=== PATIENT | female | born 1990 | race Caucasian/White ===

== ENCOUNTER 2017-04-16 20:23 | Emergency (ER) | payer BC ==
[~2017-04-16] VITALS: Ht 162.6 cm; Wt 68.0 kg
[~2017-04-16 20:23] MED LIST: BIRTH CONTROL PILL PO
--- NOTE | 2017-04-16 21:15 | Diagnostic Imaging Report ---
INDICATION: Injury to right foot. EXAMINATION: AP, oblique and lateral views of the right foot were obtained. FINDINGS: No fracture or acute bony abnormality is seen. Joint spaces are unremarkable. IMPRESSION: Negative right foot. Dictated by: Dictated on workstation # [id number]
[2017-04-16] MEDS ORDERED: TRAM-42 PO (21:32)
--- NOTE | 2017-04-16 21:33 | ED Lower Extremity ---
General Chief Complaint: Lower Extremity Stated Complaint: R FOOT INJ Nursing Triage Note: PT TO ED 10 W/ C/O RT FOOT PAIN ONSET AFTER ROLLING ANKLE ON A HILL. DENIES C/ O ANKLE PAIN. ALSO NOTED ARE ABRASIONS TO LT KNEE ET ANKLE. NO OTHER C/O VOICED Nursing Sepsis Screen: No Definite Risk Source: patient Exam Limitations: no limitations History of Present Illness Time seen by provider: 20:48 Initial Comments This patient presents to the emergency room with pain to the dorsum and lateral aspect of her right foot after rolling her ankle and falling down a caden hill. She has abrasions on the left knee and leg but she is not having significant pain there. She has been ambulatory but there is pain with walking. Dorsiflexion of the toes causes pain as does walking. She applied ice at home and took Excedrin and has had some mild improvement. Allergies and Home Medications Allergies Coded Allergies: No Known Drug Allergies (Unverified , 04/09/12) Home Medications Tramadol HCl 50 Mg Tablet, 50 MG PO Q6H PRN for PAIN-MODERATE TO SEVERE, #14 Prescribed by: MARIS PRESLEY on 04/16/172131 [ Control Pill] , 1 TAB PO DAILY, (Reported) Constitutional: no symptoms reported EENTM: no symptoms reported Respiratory: no symptoms reported Cardiovascular: no symptoms reported Gastrointestinal: no symptoms reported Genitourinary: no symptoms reported : No Expected Date of Delivery: Apr 15, 2017 Musculoskeletal: see HPI Skin: see HPI Psychiatric/Neurological: No Symptoms Reported Past Tryatsl-Cayprh-Htqhvm Hx Patient Social History Alcohol Use: Denies Use Recreational Drug Use: No Smoking Status: Never a Smoker Recent Foreign Travel: No Contact w/Someone Who Travel: No Recent Infectious Disease Expo: No Recent Hopitalizations: No Surgeries HX Surgeries: Yes Surgeries: Adenoidectomy, Orthopedic (meniscus tear), Tonsillectomy Respiratory Hx Respiratory Disorders: No Cardiovascular Hx Cardiac Disorders: No Neurological Hx Neurological Disorders: No Reproductive System Hx Reproductive Disorders: Yes (CHRONIC PELVIC PAIN) Sexually Transmitted Disease: No Gastrointestinal Hx Gastrointestinal Disorders: No Musculoskeletal Hx Musculoskeletal Disorders: No Endocrine Hx Endocrine Disorders: No HEENT HX ENT Disorders: No Cancer Hx Cancer: No Psychosocial Hx Psychiatric Problems: No Blood Transfusions Hx Blood Disorders: No Physical Exam Vital Signs Vital Sign - Last 12Hours 04/16/17 20:40 Temp 96.3 Pulse 86 Resp 20 B/P (MAP) 126/91 Pulse Ox 99 O2 Delivery Room Air Capillary Refill : Less Than 3 Seconds General Appearance: WD/WN, no apparent distress HEENT: normal ENT inspection Legs: right leg non-tender, right leg normal inspection, bilateral leg normal range of motion, right leg no evidence of injury, left leg other (abrasion of the left knee and leg) Knees: bilateral knee non-tender, bilateral knee normal inspection, bilateral knee normal range of motion, bilateral knee no evidence of injury Ankles: bilateral ankle non-tender, bilateral ankle normal inspection, bilateral ankle normal range of motion, bilateral ankle no evidence of injury Feet: bilateral foot non-tender, bilateral foot normal inspection, bilateral foot normal range of motion, bilateral foot no evidence of injury, right foot bone tenderness, right foot limited range of motion, right foot pain, right foot swelling, right foot other (pain and tenderness to the dorsum and lateral aspect of the right foot. Pain with dorsiflexion range of motion. 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 Tramadol was given as an alternative. Diagnostic Imaging Diagonstic Imaging: Xray Plain Films/CT/US/NM/MRI: other (right foot) Comments X-ray of the right foot viewed by me and report reviewed. See report below: NAME: EVETTE HARRELL [facility] REC#: [id number] PT STATUS: REG ER : 1990 PHYSICIAN: MARIS ECHEVERRIA MD ADMIT DATE: 04/16/17/ER Signed Date of Exam: 04/16/17 FOOT, RIGHT, 3 VIEW INDICATION: Injury to right foot. EXAMINATION: AP, oblique and lateral views of the right foot were obtained. FINDINGS: No fracture or acute bony abnormality is seen. Joint spaces are unremarkable. IMPRESSION: Negative right foot. Dictated by: Dictated on workstation # [id number] Dict: 04/16/172110 Trans: 04/16/172118 Interpreted by: JOHN COY MD Electronically signed by: JOHN COY MD 04/16/172118 Departure Impression Impression: Primary Impression: Right foot sprain Qualified Codes: S93.601A - Unspecified sprain of right foot, initial encounter Disposition: HOME, SELF-CARE Condition: Stable Departure-Patient Inst. Decision time for Depature: 21:25 Referrals: NO,LOCAL PHYSICIAN (PCP) Primary Care Physician SHERLY RUSSO MD (Family) Primary Care Physician Patient Instructions: NO INSTRUCTIONS GIVEN Add. Discharge Instructions: You may take ibuprofen up to 600 mg every 6 hours as needed for pain. Add Tylenol (acetaminophen) or Ultram (tramadol) 4 pain not controlled by ibuprofen. Avoid strenuous activity such as running or prolonged periods of time on your feet as long as pain persists. Where supportive shoes with good condition. Follow-up with your primary care provider if not improving over the next week. Return to care if symptoms worsen. All discharge instructions reviewed with patient and/or family. Voiced understanding. Scripts Tramadol HCl (Ultram) 50 Mg Tablet 50 MG PO Q6H Y for PAIN-MODERATE TO SEVERE, #14 TAB Prov: MARIS ECHEVERRIA MD 04/16/17 MARIS ECHEVERRIA MD Apr 16, 2017 21:33
[2017-04-16 21:37] VITALS: BP 126/91
== END 2017-04-16 21:37 | disposition home or self-care (01) ==
LOC: EDUNIT# 20:23 → ER 20:27
DX: S93.601A Unspecified sprain of right foot, initial encounter (principal); Z90.89 Acquired absence of other organs; X50.0XXA Overexertion from strenuous movement or load, initial encounter; Y92.828 Other wilderness area as the place of occurrence of the external cause
CPT/HCPCS: 73630; 99283

== ENCOUNTER 2018-10-19 05:29 | Outpatient (CLI) | payer BC ==
[~2018-10-19] VITALS: Ht 165.1 cm; Wt 74.8 kg
[~2018-10-19 05:29] MED LIST changes: +TRAM-42 PO
== END 2018-10-19 11:11 | disposition home or self-care (01) ==
LOC: PREOP 05:29
PROVIDERS: ATTEND Obstetrics & Gynecology
DX: Z01.818 Encounter for other preprocedural examination (principal)

== ENCOUNTER 2018-10-25 07:07 | Day surgery (SDC) | payer BC, OTHER ==
[~2018-10-25] VITALS: Ht 165.1 cm; Wt 74.8 kg
--- NOTE | 2018-10-25 07:27 | Progress Note-Pre Operative ---
Pre-Operative Progress Note H&P Reviewed The H&P was reviewed, patient examined and no changes noted. Date Seen by Provider: Oct 25, 2018 Time Seen by Provider: 08:00 Date H&P Reviewed: Oct 25, 2018 Time H&P Reviewed: 08:00 Pre-Operative Diagnosis: ANTHONY FONTENOT DO Oct 25, 2018 07:27
[2018-10-25] MEDS: LACTATED RINGERS 1,000 ML IV PRN ×2 (07:35→09:56)
[2018-10-25] MEDS ORDERED: BUPIVACAINE 0.25% 30 ML (SENSORCAINE) VIAL ONE (07:41)
[2018-10-25 07:49] VITALS: BP 111/81
[2018-10-25 07:50] LABS: BASOPHILS % (AUTO) 1 % (0-10); EOSINOPHILS # (AUTO) 0.1 10^3/uL (0.0-0.3); EOSINOPHILS % (AUTO) 2 % (0-10); HEMATOCRIT 37 % (35-52); HEMOGLOBIN 13.2 G/DL (11.5-16.0); LYMPHOCYTES # (AUTO) 1.5 X 10^3 (1.0-4.0); LYMPHOCYTES % (AUTO) 43 % (12-44); MEAN CORPUSCULAR HEMOGLOBIN 31 PG (25-34); MEAN CORPUSCULAR HGB CONC 36 G/DL (32-36); MEAN CORPUSCULAR VOLUME 89 FL (80-99); MEAN PLATELET VOLUME 8.8 FL (7.4-10.4); MONOCYTES # (AUTO) 0.4 X 10^3 (0.0-1.0); MONOCYTES % (AUTO) 11 % (0-12); NEUTROPHILS # (AUTO) 1.5 X 10^3 (1.8-7.8); NEUTROPHILS % (AUTO) 43 % (42-75); PLATELET COUNT 257 10^3/uL (130-400); RED CELL DISTRIBUTION WIDTH 12.4 % (10.0-14.5); WHITE BLOOD COUNT 3.5 10^3/uL (4.3-11.0)
[2018-10-25] MEDS ORDERED: ONDANSETRON 4 MG/2 ML (SDV) Z0FRAN ONE (08:06)
[2018-10-25] MEDS ORDERED: LIDOCAINE PF 2% 5 ML (XYLOCAINE) VIAL ONE (08:06)
[2018-10-25] MEDS ORDERED: ROCURONIUM 10 MG/ML 5 ML SYRINGE IV ONE (08:06)
[2018-10-25] MEDS ORDERED: proPOfol 200 MG/20 ML (DIPRIVAN) VIAL IV ONE (08:06)
[2018-10-25] MEDS ORDERED: MIDAZOLAM 2 MG/2 ML (VERSED) VIAL ONE (08:06)
[2018-10-25] MEDS ORDERED: fentaNYL INJECTION 100 MCG/2 ML AMP ONE (08:06)
[2018-10-25] MEDS ORDERED: SEVOFLURANE (ULTANE) 15 ML INHAL SOLN ONE ×5 (08:09→09:47)
[2018-10-25] MEDS ORDERED: D5 LR IV SOLUTION 1,000 ML IV SCH (08:34)
[2018-10-25] MEDS ORDERED: KETOROLAC 30 MG/ML VIAL IVP ONE (08:45)
[2018-10-25] MEDS ORDERED: ONDANSETRON 4 MG/2 ML (SDV) Z0FRAN IVP PRN ×2 (08:45→10:00)
[2018-10-25] MEDS ORDERED: IBUP-1773 PO (08:54)
[2018-10-25] MEDS ORDERED: HYDR-4226 PO (08:54)
--- NOTE | 2018-10-25 08:56 | Discharge Inst-Women's Service ---
Discharge Inst-Women's Serv Depart Medication/Instructions New, Converted or Re-Newed RX: RX on Chart Consults/Follow Up Additional Follow Up: Yes Orders/Referrals DR Villalobos in 7-10 days Activity Activity: Activity as Tolerated Driving Instructions: You May Drive (do not drive while taking hydrocodone) NO SMOKING: NO SMOKING Nothing Inside Vagina: No Douching, No [place], No Tampons Diet Discharge Diet: No Restrictions Symptoms to Report to : Bleeding Excessive, Pain Increased, Fever Over 101 Degrees F, Vaginal Bleeding Increase, Questions/Concerns ANTHONY VILLALOBOS DO Oct 25, 2018 08:55
[2018-10-25] MEDS ORDERED: GLYCOPYRROLATE 0.2 MG/ML (ROBINUL) 2 ML VIAL ONE (09:38)
[2018-10-25] MEDS ORDERED: NEOSTIGMINE 1 MG/ML 5 ML SYRINGE ONE (09:38)
[2018-10-25] MEDS ORDERED: KETOROLAC 30 MG/ML VIAL ONE (09:42)
[2018-10-25] MEDS ORDERED: PROMETHAZINE INJ 25 MG/ML (PHENERGAN) AMP IVP ONE (10:00)
[2018-10-25] MEDS ORDERED: MEPERIDINE (DEMEROL) INJ 50 MG/ML IVP ONE (10:00)
[2018-10-25] MEDS ORDERED: HYDROmorphone 2 MG/ML VIAL (DILAUDID) IV ONE (10:00)
[2018-10-25] MEDS ORDERED: morphine INJ 10 MG/ML 1ML (SYR OR VIAL) IVP ONE (10:00)
[2018-10-25 10:55] VITALS: BP 93/67
--- NOTE | 2018-10-25 11:10 | Anesthesia-General Post-Op ---
General Patient Condition Mental Status/LOC: Same as Preop Cardiovascular: Satisfactory Nausea/Vomiting: Absent Respiratory: Satisfactory Pain: Controlled Complications: Absent Post Op Complications Complications None Follow Up Care/Instructions Patient Instructions None needed. Anesthesia/Patient Condition Patient Condition Patient is doing well, no complaints, stable vital signs, no apparent adverse anesthesia problems. No complications reported per nursing. JASMINE LYN CRNA Oct 25, 2018 11:10
[2018-10-25] MEDS ORDERED: HYDROcodone/APAP 5 MG/325 MG (LORTAB) TAB PO ONE (11:15)
[2018-10-25 11:25] VITALS: BP 98/70
[2018-10-25 11:55] VITALS: BP 91/63
[2018-10-25 12:35] VITALS: BP 91/63
--- NOTE | 2018-10-25 15:08 | OPERATIVE REPORT ---
DATE OF SERVICE: PREOPERATIVE DIAGNOSES: 1. A 28-year-old female with chronic pelvic pain. 2. Pain with defecation. 3. Suspected underlying endometriosis. POSTOPERATIVE DIAGNOSES: 1. A 28-year-old female with chronic pelvic pain. 2. Pain with defecation. 3. Suspected underlying endometriosis. 4. Adhesions from the sigmoid colon to the left adnexa. 5. Confirmed endometriosis. PROCEDURE: Laparoscopic lysis of adhesions with cauterization and ablation of endometriosis implants of the peritoneum. SURGEON: Te Feng DO. PLANT TECH: ANTWAN Gomez. ANESTHESIA: General endotracheal. ESTIMATED BLOOD LOSS: Minimal. URINE OUTPUT: 200 mL clear at the end of the procedure. FLUIDS: 900 mL of lactated Ringer solution. FINDINGS: There was a grossly normal appearing uterus, bilateral fallopian tubes and ovaries with adhesions of the descending sigmoid colon wrapping from the epiploica of the sigmoid colon around anterior of the left round ligament impinging the left adnexa, endometriosis implants of the uterosacral ligaments bilaterally as well as some suspected colonic endometriosis implants, endometriosis implant of the uterine fundus. SPECIMENS SENT: None. INDICATIONS: This is a 28-year-old female patient that has been under my care for the past two to three years with significant complaints of chronic pelvic pain. She has had pain her entire life associated with gynecologic region. She could not even insert a tampon due to the amount of discomfort that she is having. We have tried conservative measures in the past including oral contraceptive pills and Depo-Provera, all of which have not resulted in any type of improvement in her symptoms and they have progressively have become worse. She is now complaining of a significant amount of pain with bowel movements and is wanting to proceed with more definitive and hopefully diagnostic measures. Risks of the procedure were discussed with the patient in detail in the preoperative area and after all of her questions were answered, consent was obtained in the preoperative area. The patient was taken to the operating room. DESCRIPTION OF PROCEDURE IN DETAIL: Once in the operating room, general anesthesia was found to be adequate. She was placed in the dorsal lithotomy position and prepped and draped in the normal sterile fashion. Husain catheter was placed using the sterile technique. A timeout was performed. A weighted speculum was inserted into the patient's vagina. A right angle retractor was used to visualize the cervix, which was grasped at 12 o'clock position using a long Allis clamp. I then gently sounded the uterine cavity and that sounded to be 8 cm. I then placed a ZapMeer uterine manipulator to a depth of 8 cm into the endometrial cavity, deploying the balloon and removing the other instruments from the patient's vagina. At that point, I noted a laceration of the hymenal ring on the right side that was repaired using 3-0 Rapide Vicryl suture in an interrupted fashion, after which it was noted to be hemostatic. I then performed a change of gloves and took my attention to the abdomen where infraumbilically I infiltrated this area using 0.25% Marcaine to make a 5 mm incision and directed the Veress needle through the incision until intraperitoneal placement was confirmed using a saline drop test. I then proceeded with insufflation using CO2 gas and an opening pressure of 5 mmHg was noted. I proceeded with a max pressure of 15 mmHg, which was performed with the Veress needle and introduced a 5 mm blunt trocar. After it is in place, I was able to confirm its correct placement using a 5 mm laparoscope. I then briefly scanned the upper abdominal anatomy, which appeared to be grossly normal. I had the patient placed in the steep Trendelenburg and made visualize the pelvic anatomy described in my findings above. I first decided to take down the adhesions and do so by placing a second trocar suprapubically through a previously existing incision infiltrating the skin using 0.25% Marcaine and making a 5 mm incision and placed the trocar under direct visualization of the laparoscope. Once this was in place, I used an EndoShears to dissect this off of the pelvic sidewall, freeing up the sigmoid colon allowing to free more to the midline and off of the adnexa. After that, I used the EndoShears as well too using monopolar cautery through it to cauterize all the endometriosis implants that I had described in my findings above. Once this was done, I copiously irrigated the pelvis using normal saline. There was no active bleeding noted from any of my dissection planes. I slowly had the patient taken out of the steep Trendelenburg where I removed the suprapubic trocar under direct visualization of the laparoscope. The infraumbilical trocar was left in place to release insufflation and to introduce 10 mL 0.25% Marcaine into the peritoneal cavity for postoperative pain management after which this trocar site was removed to try to release all the insufflation as well. The skin was then reapproximated using a Dermabond and Band-Aids were placed over these incisions. Husain catheter was removed at the end of the procedure as well as the Kronner uterine manipulator. Lap and sponge counts were correct at the end of the procedure. The instrument counts were correct as well. The patient tolerated the procedure well and was taken to the recovery area in stable condition. Job ID: [id number] DocumentID: [id number] Dictated Date: 10/25/2018 11:04:52 Diamond Assorter Date: 10/25/2018 15:07:59 Dictated By: DO BRIDGET KOCH
== END 2018-10-25 12:35 | disposition home or self-care (01) ==
LOC: SDC 07:07
PROVIDERS: ATTEND Obstetrics & Gynecology
DX: N80.0 Endometriosis of uterus (principal); N80.3 Endometriosis of pelvic peritoneum; N73.6 Female pelvic peritoneal adhesions (postinfective); N99.71 Accidental puncture and laceration of a genitourinary system organ or structure during a genitourinary system procedure
CPT/HCPCS: 36415; 84703; 85025; 86850; 86900; 86901; 87081

== ENCOUNTER 2022-02-28 05:31 | Outpatient (CLI) | payer OTHER ==
[~2022-02-28] VITALS: Ht 162.6 cm; Wt 72.7 kg
[~2022-02-28 05:31] MED LIST changes: +HYDR-4226 PO; +IBUP-1773 PO
== END 2022-03-02 09:20 | disposition home or self-care (01) ==
LOC: PREOP 05:31
PROVIDERS: ATTEND Obstetrics & Gynecology
DX: Z01.818 Encounter for other preprocedural examination (principal)

== ENCOUNTER 2022-03-07 07:04 | Day surgery (SDC) | payer OTHER ==
[~2022-03-07] VITALS: Ht 162.6 cm; Wt 72.7 kg
[2022-03-07] VITALS (11 sets, daily range): BP systolic 97–131; BP diastolic 66–79
[2022-03-07] MEDS ORDERED: BUPIVACAINE 0.25% 10 ML (SENSORCAINE) VIAL ONE (07:23)
[2022-03-07 08:08] LABS: BASOPHILS % (AUTO) 1 % (0-10); EOSINOPHILS # (AUTO) 0.1 10^3/uL (0.0-0.3); EOSINOPHILS % (AUTO) 2 % (0-10); HEMATOCRIT 37 % (35-52); HEMOGLOBIN 12.9 g/dL (11.5-16.0); LYMPHOCYTES # (AUTO) 1.5 10^3/uL (1.0-4.0); LYMPHOCYTES % (AUTO) 35 % (12-44); MEAN CORPUSCULAR HEMOGLOBIN 31 pg (25-34); MEAN CORPUSCULAR HGB CONC 35 g/dL (32-36); MEAN CORPUSCULAR VOLUME 88 fL (80-99); MEAN PLATELET VOLUME 8.7 fL (9.0-12.2); MONOCYTES # (AUTO) 0.5 10^3/uL (0.0-1.0); MONOCYTES % (AUTO) 11 % (0-12); NEUTROPHILS # (AUTO) 2.3 10^3/uL (1.8-7.8); NEUTROPHILS % (AUTO) 52 % (42-75); PLATELET COUNT 230 10^3/uL (130-400); WHITE BLOOD COUNT 4.4 10^3/uL (4.3-11.0)
[2022-03-07] MEDS: LACTATED RINGERS 1,000 ML IV PRN ×2 (08:14→09:57)
[2022-03-07] MEDS ORDERED: proPOfol 200 MG/20 ML (DIPRIVAN) VIAL IV ONE (08:16)
[2022-03-07] MEDS ORDERED: NEOSTIGMINE (BLOXIVERZ ) 1 MG/1ML 10 ML VIAL ONE (08:16)
[2022-03-07] MEDS ORDERED: ROCURONIUM 50 MG/5 ML (ZEMURON) VIAL IV ONE (08:16)
[2022-03-07] MEDS ORDERED: GLYCOPYRROLATE 0.2 MG/ML (ROBINUL) 2 ML VIAL ONE (08:16)
[2022-03-07] MEDS ORDERED: MIDAZOLAM 2 MG/2 ML (VERSED) VIAL ONE (08:16)
[2022-03-07] MEDS ORDERED: fentaNYL INJ 100 MCG/2 ML AMP ONE (08:16)
[2022-03-07] MEDS ORDERED: LIDOCAINE PF 2% 5 ML (XYLOCAINE) VIAL ONE (08:16)
[2022-03-07] MEDS ORDERED: ONDANSETRON 4 MG/2 ML (SDV) Z0FRAN ONE (08:16)
--- NOTE | 2022-03-07 08:22 | Discharge Inst-Women's Service ---
Discharge Inst-Women's Serv Depart Medication/Instructions New, Converted or Re-Newed RX: Transmitted to Pharmacy Problems Reviewed?: Yes Consults/Follow Up Additional Follow Up: Yes Activity Activity: Activity as Tolerated Driving Instructions: You May Drive (Do not drive while taking narcotic pain meds) NO SMOKING: NO SMOKING Diet Discharge Diet: No Restrictions Symptoms to Report to : Bleeding Excessive, Pain Increased, Fever Over 101 Degrees F, Vaginal Bleeding Increase, Questions/Concerns For Any Problems or Questions: Contact Your Physician Skin/Wound Care Infection Signs and Symptoms: Increased Redness, Foul Odor of Wound, Increased Drainage, Skin Itchy or Has a Rash, Increased Swelling, Temperature Above 101 F Operative Area Clean and Dry: Keep Incision Clean/Dry Stitches/[place]/Dermabond: Dermabond, Care of Stitches Bathing Instructions: ANTHONY Boyle DO Mar 07, 2022 08:22
[2022-03-07] MEDS ORDERED: ACHD5005 PO (08:23)
[2022-03-07] MEDS ORDERED: DOCU-143 PO (08:23)
[2022-03-07] MEDS ORDERED: IBUP-1773 PO (08:23)
[2022-03-07] MEDS ORDERED: ONDANSETRON 4 MG/2 ML (SDV) Z0FRAN IVP PRN ×2 (08:30→09:45)
[2022-03-07] MEDS ORDERED: D5 LR IV SOLUTION 1,000 ML IV SCH (08:30)
[2022-03-07] MEDS ORDERED: KETOROLAC 30 MG/ML VIAL IVP ONE (08:30)
[2022-03-07] MEDS ORDERED: HYDROcodone/APAP 5 MG/325 MG (LORTAB) TAB PO PRN (08:30)
[2022-03-07] MEDS ORDERED: morphine INJ 10 MG/ML 1ML (SYR OR VIAL) IVP ONE (09:45)
[2022-03-07] MEDS ORDERED: HYDROmorphone 2 MG/ML VIAL (DILAUDID) IV ONE (09:45)
--- NOTE | 2022-03-07 10:48 | Anesthesia-General Post-Op ---
General Patient Condition Mental Status/LOC: Same as Preop Cardiovascular: Satisfactory Nausea/Vomiting: Absent Respiratory: Satisfactory Pain: Controlled Complications: Absent Post Op Complications Complications None Follow Up Care/Instructions Patient Instructions None needed. Anesthesia/Patient Condition Patient Condition Patient is doing well, no complaints, stable vital signs, no apparent adverse anesthesia problems. No complications reported per nursing. ALVIN MUHAMMAD DO Mar 07, 2022 10:48
--- NOTE | 2022-03-07 19:01 | OPERATIVE REPORT ---
DATE OF SERVICE: PREOPERATIVE DIAGNOSIS: 1. A 31-year-old female with chronic pelvic pain. 2. ASCUS Pap, HPV positive. POSTOPERATIVE DIAGNOSES: 1. A 31-year-old female with chronic pelvic pain. 2. ASCUS Pap, HPV positive. PROCEDURE: Colposcopy followed by diagnostic laparoscopy. SURGEON: Te Feng DO ANESTHESIA: General LMA. ESTIMATED BLOOD LOSS: Minimal. URINE OUTPUT: 150 mL clear at the end of the procedure. FLUIDS: 1600 mL lactated Ringer's solution. FINDINGS: Grossly normal appearing external female genitalia and cervix, uterus with evidence of hemosiderin deposits on the serosal surface, endometriosis of bilateral broad ligaments, the left side more so with diffuse endometriosis bleeding from the left broad ligament surface. SPECIMEN SENT: Colposcopic biopsy and endocervical curettings. INDICATIONS FOR PROCEDURE: A 31-year-old female is a patient who had sought care in my office and has undergone laparoscopy for endometriosis before that offered significant relief for the past 3 to 4 years. However, she reports her pain has returned. Her last Pap smear also was abnormal with ASCUS HPV positive. Due to need for colposcopy, we decided to do this under anesthesia since that would be administered anyways and the patient had minimal tolerance of pelvic examination. Risks of the procedure were discussed with the patient in detail. After all of her questions were answered in the preoperative area, consent was obtained, the patient was taken to the operating room. OPERATIVE REPORT IN DETAIL: Once in the operating room, anesthesia was found to be adequate, she was placed in dorsal lithotomy position, prepped and draped in normal sterile fashion. Timeout was performed. Graves's speculum was used to identify the cervix. The cervix was covered with acetic acid, which allows me to identify cellular dysplasia with colposcopic evaluation. There was a small area of cellular dysplasia noted at 12 o'clock position. A Kevorkian biopsy forceps was used to take a small biopsy of this area as well as a Curriculetorkian endocervical curette was used to take an endocervical sample as well, after which the biopsy site was made hemostatic using silver nitrate. I then placed a Remedify uterine manipulator to a depth of 7 cm after the uterus was sounded to 7 cm. Once the uterine manipulator was in place, I removed all other instruments from the patient's vagina, turned my attention to the abdomen where the midclavicular line subcostally on the left side, I introduced a Veress needle approximately 2 cm below the lowest rib until intraperitoneal placement was confirmed using saline drop test. An opening pressure of 6 mmHg was noted. I proceeded with CO2 insufflation to maximum pressure of 15 mmHg, at which point, I made a 5 mm incision infraumbilically with a knife and direct a blunt laparoscopic trocar through this incision until intraperitoneal placement was confirmed using laparoscope. There was no evidence of damage upon my entry site. A brief scan of the upper abdominal anatomy appears to be grossly normal. There was no endometriosis noted on the diaphragm. The Veress needle was removed. There was no evidence of damage from the Veress needle entry site. I then took my attention to the pelvis and had the patient placed in steep Trendelenburg where I am able to visualize all pelvic anatomy as defined in my findings above. I placed a suprapubic trocar, a 5 mm trocar placed in similar fashion. Once this was in place, I used a spatula cautery to cauterize and destroy all of the endometriosis that I can identify. This is all documented as well with laparoscopic imaging after which there was no active bleeding noted from any of my cauterization or dissection planes. I then copiously irrigated the pelvis using normal saline. Once again, there was no active bleeding noted from any of my dissection planes. I then had the patient taken out of steep Trendelenburg where I released insufflation. I removed the suprapubic trocar under direct visualization of laparoscope after 10 mL of 0.25% Marcaine introduced in the peritoneal cavity for postoperative pain management. I then removed the infraumbilical trocar as well. The skin reapproximated using Dermabond. Band-Aids were placed over the incisions. Husain catheter was removed. Kronner uterine manipulator was removed. The patient tolerated the procedure well and sent to recovery area in stable condition. Lap and sponge counts were correct at the end of the procedure. Instrument counts correct as well. Job ID: [id number] DocumentID: [id number] Dictated Date: 03/07/2022 10:01:03 [employer] Date: 03/07/2022 19:00:46 Dictated By: DO BRIDGET KOCH
== END 2022-03-07 12:40 | disposition home or self-care (01) ==
LOC: SDC 07:04
PROVIDERS: ATTEND Obstetrics & Gynecology
DX: N72 Inflammatory disease of cervix uteri (principal); G89.29 Other chronic pain; A63.0 Anogenital (venereal) warts
CPT/HCPCS: 36415; 84703; 85025; 86850; 86900; 86901; 87081

== ENCOUNTER → 2022-12-01 | Outpatient (CLI) | payer OTHER ==
[~2022-12-01] MED LIST changes: +ACHD5005 PO; +DOCU-143 PO
--- NOTE | 2022-12-01 16:56 | Diagnostic Imaging Report ---
PROCEDURE: Pelvic comp/transvaginal sonogram. TECHNIQUE: Complete transabdominal and transvaginal pelvic ultrasound was performed. In addition, limited pelvic Doppler was performed. INDICATION: Pelvic pain, left greater as well as bleeding. Uterus is anteverted measuring 6.5 x 2.4 x 3.1 cm. Endometrium is 5 mm in thickness. No myometrial mass is detected. Right ovary measures 2.4 x 1.1 x 1.2 cm and left ovary measures 2.3 x 1.3 x 1.1 cm. Ovaries contain small follicles. There is blood flow to both ovaries. No adnexal mass or free fluid is detected. IMPRESSION: Unremarkable transabdominal and transvaginal pelvic ultrasound with limited pelvic Doppler. Dictated by: Dictated on workstation # [id number]
== END ==
LOC: RAD 14:30
PROVIDERS: ATTEND Obstetrics & Gynecology
DX: R10.2 Pelvic and perineal pain (principal)
CPT/HCPCS: 76830; 76856